=== PATIENT | female | born 1965 | race Asian ===

== ENCOUNTER 2016-09-22 15:26 | Inpatient (IN) | payer SELFPAY ==
[~2016-09-22] VITALS: Ht 160 cm; Wt 60.8 kg
[2016-09-22 15:50] VITALS: BP 106/75
--- NOTE | 2016-09-22 15:54 | Emergency Room Report ---
History of Present Illness General Chief Complaint: Seizure Source: Patient, Family Member, EMS Present Illness HPI Patient is a 51-year-old female presenting with an episode while walking today. Her daughter states that the patient collapsed to the ground and began convulsing. This lasted approximately 30 seconds and was followed by the patient taking a deep breath and then waking up but being confused. She is still somewhat confused but is continuing to improve. Upon arrival the patient is oriented x3. Patient does not have a history of any similar episodes in the past. She is currently taking spironolactone for "hair loss "as prescribed by her primary physician Allergies: Coded Allergies: PENICILLINS (Verified Allergy, Unknown, 09/22/16) Patient History Past Medical History: other - anemia Past Surgical History: none Pertinent Family History: none Social History: Denies: alcohol use, drug use, smoking Now: No Nursing Documentation-[facility] Past Medical History: No History, Except For Hx Hypertension: Yes Review of Systems All Other Systems: limited Physical Exam Vital Signs Date Time Temp Pulse Resp B/P Pulse Ox O2 Delivery O2 Flow Rate FiO2 09/22/16 15:21 98.2 105 16 104/70 100 Room Air Sp02 EP Interpretation: reviewed, normal General Appearance: no apparent distress, alert, GCS 15, non-toxic Head: normocephalic, atraumatic Eyes: bilateral eye PERRL, bilateral eye normal inspection ENT: hearing grossly normal, normal pharynx, no angioedema, normal voice Neck: full range of motion, supple/symm/no masses Respiratory: chest non-tender, lungs clear, normal breath sounds, speaking full sentences Cardiovascular #1: regular rate, rhythm, no edema Gastrointestinal: normal bowel sounds, non tender, soft, non-distended, no guarding, no rebound Musculoskeletal: back normal, gait/station normal, normal range of motion, non- tender, calf tenderness Neurologic: alert, oriented x3, responsive, motor strength/tone normal, sensory intact, speech normal Skin: normal color, no rash, warm/dry, well hydrated Medical Decision Making Diagnostic Impression: Primary Impression: Epileptic seizure, generalized ER Course patient was monitored in the emergency Department while laboratory studies returned. Patient's laboratory studies were unremarkable save for a potassium of 5.5. CT head was also unremarkable. Plan was to admit the patient to the hospital for syncope versus seizure given the fact the patient has no primary care physician in the [facility] and is here from out of town no way of followup. However, while waiting the patient suffered a tonic-clonic seizure lasting approximately 1-1/2 minutes. This was followed by a postictal period. The episode was witnessed by me. Plan will be the same given the patient's lack of followup. She was given 1000 mg IV Keppra and I'm waiting on the hospitalist for confirmation of the patient's admission Laboratory Tests Test 09/22/16 16:14 White Blood Count 9.4 K/UL (4.8-10.8) Red Blood Count 4.47 M/UL (4.20-5.40) Hemoglobin 14.4 G/DL (12.0-16.0) Hematocrit 42.0 % (37.0-47.0) Mean Corpuscular Volume 94 FL (80-99) Mean Corpuscular Hemoglobin 32.2 PG (27.0-31.0) H Mean Corpuscular Hemoglobin Concent 34.2 G/DL (32.0-36.0) Red Cell Distribution Width 12.5 % (11.6-14.8) Platelet Count 255 K/UL (150-450) Mean Platelet Volume 6.5 FL (6.5-10.1) Neutrophils (%) (Auto) 74.9 % (45.0-75.0) Lymphocytes (%) (Auto) 15.9 % (20.0-45.0) L Monocytes (%) (Auto) 6.9 % (1.0-10.0) Eosinophils (%) (Auto) 1.4 % (0.0-3.0) Basophils (%) (Auto) 0.9 % (0.0-2.0) Sodium Level 135 mEQ/L (135-145) Potassium Level 5.5 mEQ/L (3.4-4.9) H Chloride Level 97 mEQ/L (98-107) L Carbon Dioxide Level 25 mEQ/L (20-30) Anion Gap 13 (5-15) Blood Urea Nitrogen 14 mg/dL (7-23) Creatinine 0.8 mg/dL (0.5-0.9) Estimate Glomerular Filtration Rate > 60 mL/min (>60) Glucose Level 126 mg/dL (74-106) H Calcium Level 10.1 mg/dL (8.6-10.2) Total Bilirubin 0.4 mg/dL (0.0-1.2) Aspartate Amino Transferase (AST) 17 U/L (5-40) Alanine Aminotransferase (ALT) 12 U/L (3-33) Alkaline Phosphatase 50 U/L (35-104) Total Creatine Kinase 54 U/L (26-140) Troponin I < 0.30 ng/mL (<=0.30) Total Protein 6.9 g/dL (6.6-8.7) Albumin 4.3 g/dL (3.5-5.2) Globulin 2.6 g/dL Albumin/Globulin Ratio 1.6 (1.0-2.7) EKG Diagnostic Results Rate: normal Rhythm: NSR ST Segments: no acute changes Other Impression sinus rhythm, rate 86, normal axis, no acute ST or T-wave abnormalities Rhythm Strip Diag. Results Rhythm Strip Time: 15:55 EP Interpretation: yes Rhythm: NSR Other Impression rate 86, normal axis, no acute ST or T-wave abnormalities CT/MRI/US Diagnostic Results CT/MRI/US Diagnostic Results : Impression per radiologist-no hemorrhage or cortical edema. MRI more sensitive. Deformities of the bilateral zygomatic arches chronic? Last Vital Signs Date Time Temp Pulse Resp B/P Pulse Ox O2 Delivery O2 Flow Rate FiO2 09/22/16 15:21 98.2 105 16 104/70 100 Room Air Disposition: ADMITTED INPATIENT NOLVIA MURILLO Sep 22, 2016 15:54
[2016-09-22 16:31] LABS: BASOPHILS % (AUTO) 0.9 % (0.0-2.0); EOSINOPHILS % (AUTO) 1.4 % (0.0-3.0); LYMPHOCYTES % (AUTO) 15.9 % (20.0-45.0); MEAN CORPUSCULAR HEMOGLOBIN 32.2 PG (27.0-31.0); MEAN CORPUSCULAR HGB CONC 34.2 G/DL (32.0-36.0); MEAN CORPUSCULAR VOLUME 94 FL (80-99); MEAN PLATELET VOLUME 6.5 FL (6.5-10.1); MONOCYTES % (AUTO) 6.9 % (1.0-10.0); NEUTROPHILS % (AUTO) 74.9 % (45.0-75.0); PLATELET COUNT 255 K/UL (150-450); RED BLOOD COUNT 4.47 M/UL (4.20-5.40); RED CELL DISTRIBUTION WIDTH 12.5 % (11.6-14.8); WHITE BLOOD COUNT 9.4 K/UL (4.8-10.8)
[2016-09-22 16:54] LABS: TROPONIN I < 0.30 ng/mL (<=0.30)
[2016-09-22 16:57] LABS: ALANINE AMINOTRANSFERASE 12 U/L (3-33); ALBUMIN/GLOBULIN RATIO 1.6 (1.0-2.7); ANION GAP 13 (5-15); ASPARTATE AMINO TRANSFERASE 17 U/L (5-40); CALCIUM 10.1 mg/dL (8.6-10.2); CARBON DIOXIDE 25 mEQ/L (20-30); CHLORIDE 97 mEQ/L (98-107); CREATININE 0.8 mg/dL (0.5-0.9); GLOMERULAR FILTRATION RATE > 60 mL/min (>60); HEMOLYSIS 4; POTASSIUM 5.5 mEQ/L (3.4-4.9); SODIUM 135 mEQ/L (135-145); TOTAL PROTEIN 6.9 g/dL (6.6-8.7)
[2016-09-22 17:00] VITALS: BP 105/71
[2016-09-22] MEDS ORDERED: APLENZIN174 MG PO (18:23)
[2016-09-22] MEDS ORDERED: LYRICA75 M1 ORAL ×2 (18:23→22:44)
[2016-09-22] MEDS ORDERED: ALDACTONE25 MG ORAL (18:24)
[2016-09-22] MEDS ORDERED: LORazepam Inj 2mg/ml 1ml ONE (18:28)
[2016-09-22] MEDS ORDERED: levETIRAcetam 500mg vial IV ONE (18:29)
[2016-09-22 18:40] VITALS: BP 139/86
[2016-09-22] MEDS ORDERED: levETIRAcetam 1,000mg/NS100ml 100 ML IVPB ONE (18:45)
[2016-09-22 19:28] VITALS: BP 111/69
[2016-09-22 20:38] VITALS: BP 109/71
--- NOTE | 2016-09-22 20:40 | History & Physical ---
History and Physical History & Physicial d/c summary dictated [id number] GERSON HUTTON M.D. Sep 22, 2016 20:40
[2016-09-22] MEDS ORDERED: LORazepam Inj 2mg/ml 1ml IV PRN (21:00)
[2016-09-22 21:10] VITALS: BP 117/64
[2016-09-22] MEDS ORDERED: SPIRONOLACTONE100 MG ORAL (22:44)
[2016-09-22] MEDS ORDERED: WELLBUTRIN XL150 M3 ORAL (22:44)
[2016-09-22] MEDS ORDERED: [UNRECOGNIZED DRUG - OTHER] PO (22:44)
[2016-09-22] MEDS ORDERED: LYRICA150 MG ORAL (22:44)
[2016-09-23] VITALS (7 sets, daily range): BP systolic 87–96; BP diastolic 54–61
[2016-09-23] MEDS: Lyrica 75mg cap ORAL SCH (08:24)
[2016-09-23 08:56] LABS: BASOPHILS % (AUTO) 1.3 % (0.0-2.0); EOSINOPHILS % (AUTO) 1.6 % (0.0-3.0); MEAN CORPUSCULAR HEMOGLOBIN 31.5 PG (27.0-31.0); MEAN CORPUSCULAR HGB CONC 32.5 G/DL (32.0-36.0); MEAN CORPUSCULAR VOLUME 97 FL (80-99); MEAN PLATELET VOLUME 6.5 FL (6.5-10.1); MONOCYTES % (AUTO) 6.1 % (1.0-10.0); PLATELET COUNT 234 K/UL (150-450); RED BLOOD COUNT 4.07 M/UL (4.20-5.40); WHITE BLOOD COUNT 10.8 K/UL (4.8-10.8)
--- NOTE | 2016-09-23 09:12 | Diagnostic Imaging Report ---
Indication: Seizure Technique: Continuous helical CT scanning of the head was performed without intravenous contrast material. Axial and coronal 5 mm sections were generated. Radiation dose was minimized using automated exposure control Dose: Total Dose Length Product - DLP [address] Dose Index - CTDIvol(s) 70.38 mGy. Comparison: None Findings: The ventricular system is normal in size and configuration. There is no shift of midline structures. No abnormal extra-axial fluid collections are noted. There is no evidence of intracerebral bleeding. No other abnormal high or low density areas are noted within the brain. Visualized orbits and sinuses are unremarkable. The calvarium is intact. The mastoids are clear. Impression: Normal CT scan of the head without contrast material. Consider MRI with contrast for more sensitive evaluation of history seizure disorder This agrees with the preliminary interpretation provided overnight by Dr. Rivera The CT scanner at [facility] is accredited by the [employer] and the scans are performed using protocols designed to limit radiation exposure to as low as reasonably achievable to attain images of sufficient resolution adequate for diagnostic evaluation.
[2016-09-23 09:19] LABS: ANION GAP 11 (5-15); CALCIUM 8.8 mg/dL (8.6-10.2); CARBON DIOXIDE 24 mEQ/L (20-30); CHLORIDE 106 mEQ/L (98-107); CREATININE 0.7 mg/dL (0.5-0.9); GLOMERULAR FILTRATION RATE > 60 mL/min (>60); HEMOLYSIS 9; SODIUM 141 mEQ/L (135-145)
--- NOTE | 2016-09-23 11:46 | Internal Med Progress Note ---
Subjective Physician Name Hayden Hutton Attending Physician Hayden Hutton M.D. Current Medications Medications (Trade) Dose Ordered Sig/Orlin Route PRN Reason Start Time Stop Time Status Last Admin Dose Admin Acetaminophen (Tylenol) 650 mg Q4H PRN ORAL Mild Pain (Pain Scale 1-3) 09/22/16 21:00 10/22/16 20:59 Dextrose (Dextrose 50%) STAT PRN IV Hypoglycemia 09/22/16 21:00 10/22/16 20:59 Levetiracetam (Keppra) 250 mg Q12HR ORAL 09/23/16 12:00 10/23/16 11:59 Lorazepam (Ativan 2mg/ml 1ml) 0.5 mg Q4H PRN IV seizure 09/22/16 21:00 09/29/16 20:59 Ondansetron HCl (Zofran) 4 mg Q6H PRN IVP Nausea & Vomiting 09/22/16 21:00 10/22/16 20:59 Pregabalin (Lyrica) 75 mg DAILY ORAL 09/23/16 09:00 10/23/16 08:59 09/23/16 08:24 Pregabalin (Lyrica) 150 mg BEDTIME ORAL 09/23/16 21:00 10/23/16 20:59 Sodium Chloride (Sodium Chloride 1000ml bag) 1,000 ml @ 75 mls/hr [id number] IVLG 09/22/16 21:00 10/22/16 20:59 09/23/16 11:31 Allergies: Coded Allergies: PENICILLINS (Verified Allergy, Unknown, 09/22/16) All Systems: reviewed and negative except above - tired Objective Last Vital Signs Date Time Temp Pulse Resp B/P Pulse Ox O2 Delivery O2 Flow Rate FiO2 09/23/16 11:26 97.2 89 18 88/54 98 Room Air 09/22/16 20:55 2.0 General Appearance: no apparent distress, alert EENT: PERRL/EOMI, normal ENT inspection Neck: normal alignment, supple Cardiovascular: normal rate, regular rhythm Respiratory/Chest: chest wall non-tender, lungs clear Abdomen: soft, no organomegaly Extremities: normal range of motion, non-tender Neurologic: [employer] consultant II-XII grossly normal, alert, oriented x 3, responsive Laboratory Tests Test 09/22/16 16:14 09/23/16 08:30 White Blood Count 9.4 K/UL (4.8-10.8) 10.8 K/UL (4.8-10.8) Red Blood Count 4.47 M/UL (4.20-5.40) 4.07 M/UL (4.20-5.40) L Hemoglobin 14.4 G/DL (12.0-16.0) 12.8 G/DL (12.0-16.0) Hematocrit 42.0 % (37.0-47.0) 39.5 % (37.0-47.0) Mean Corpuscular Volume 94 FL (80-99) 97 FL (80-99) Mean Corpuscular Hemoglobin 32.2 PG (27.0-31.0) H 31.5 PG (27.0-31.0) H Mean Corpuscular Hemoglobin Concent 34.2 G/DL (32.0-36.0) 32.5 G/DL (32.0-36.0) Red Cell Distribution Width 12.5 % (11.6-14.8) 13.0 % (11.6-14.8) Platelet Count 255 K/UL (150-450) 234 K/UL (150-450) Mean Platelet Volume 6.5 FL (6.5-10.1) 6.5 FL (6.5-10.1) Neutrophils (%) (Auto) 74.9 % (45.0-75.0) 75.0 % (45.0-75.0) Lymphocytes (%) (Auto) 15.9 % (20.0-45.0) L 16.0 % (20.0-45.0) L Monocytes (%) (Auto) 6.9 % (1.0-10.0) 6.1 % (1.0-10.0) Eosinophils (%) (Auto) 1.4 % (0.0-3.0) 1.6 % (0.0-3.0) Basophils (%) (Auto) 0.9 % (0.0-2.0) 1.3 % (0.0-2.0) Sodium Level 135 mEQ/L (135-145) 141 mEQ/L (135-145) Potassium Level 5.5 mEQ/L (3.4-4.9) H 4.0 mEQ/L (3.4-4.9) Chloride Level 97 mEQ/L (98-107) L 106 mEQ/L (98-107) Carbon Dioxide Level 25 mEQ/L (20-30) 24 mEQ/L (20-30) Anion Gap 13 (5-15) 11 (5-15) Blood Urea Nitrogen 14 mg/dL (7-23) 10 mg/dL (7-23) Creatinine 0.8 mg/dL (0.5-0.9) 0.7 mg/dL (0.5-0.9) Estimat Glomerular Filtration Rate > 60 mL/min (>60) > 60 mL/min (>60) Glucose Level 126 mg/dL (74-106) H 80 mg/dL (74-106) Calcium Level 10.1 mg/dL (8.6-10.2) 8.8 mg/dL (8.6-10.2) Total Bilirubin 0.4 mg/dL (0.0-1.2) Aspartate Amino Transf (AST/SGOT) 17 U/L (5-40) Alanine Aminotransferase (ALT/SGPT) 12 U/L (3-33) Alkaline Phosphatase 50 U/L (35-104) Total Creatine Kinase 54 U/L (26-140) Troponin I < 0.30 ng/mL (<=0.30) Total Protein 6.9 g/dL (6.6-8.7) Albumin 4.3 g/dL (3.5-5.2) Globulin 2.6 g/dL Albumin/Globulin Ratio 1.6 (1.0-2.7) Magnesium Level 2.2 mg/dL (1.7-2.5) Intake and Output 09/22/16 09/23/16 19:00 07:00 Intake Total 0 ml 1700 ml Balance 0 ml 1700 ml Intake Oral 0 ml IV Total 1700 ml # Voids 1 Assessment/Plan Assessment/Plan Seizure x 2 - likely secondary wellbutrin anxeity d/o Lower back pain plan tele stop wellbutrin neuro consulted CT brain - no acute process EEG - pending monitor HAYDEN HUTTON M.D. Sep 23, 2016 11:46
[2016-09-23] MEDS ORDERED: celeBREX 100mg Cap **SURGERY PATIENTS ONLY ORAL PRN (12:00)
--- NOTE | 2016-09-23 13:30 | Cardiology Report ---
APPROVED REPORT EKG Measurement Heart [id number] Normal sinus rhythm Normal ECG
--- NOTE | 2016-09-23 18:15 | Consultation ---
DATE OF CONSULTATION: 09/23/2016 NEUROLOGICAL CONSULTATION REQUESTING PHYSICIAN: Hayden Logan M.D. HISTORY OF PRESENT ILLNESS: This is a 51-year-old female, seen in neurological consultation to evaluate episode of seizure activity. According to the patient and her family, who was present during this examination now and yesterday, she went with her family to do some shopping, she had a couple water and couple cups of juice in the morning, that day was very hot, she felt somewhat dehydrated, then they were walking towards the shopping center, inside of shopping center was quite crowded with still quite hot. At one point, she lost consciousness, described to have generalized clonic-tonic movement, she collapsed to the ground and one minute later, she started to wake up, but was very confused. She was brought to emergency room. On admission being fully awake and oriented. Her vital signs on admission included blood pressure 104/70, heart rate of 105, and temperature 98.[address] of the brain was obtained, this was normal study. While under observation in the emergency room, the patient had another witnessed clonic-tonic seizure episode lasting one and half minute following which she was postictal, the patient was given 1000 mg IV Keppra and was hospitalized. EKG showed normal normal sinus rhythm. Laboratory work included CBC study is within normal limits. Chemistry panel, potassium 5.5, chloride 97, and blood sugar 126 with normal troponin. Following admission to present, there was no further paroxysmal events. The patient continued to have dizziness and weakness. PAST MEDICAL HISTORY: The patient has history of cervical lumbar spondylosis with radiculopathy. She is maintained on Lyrica for pain management 75 mg IM, 150 mg at bedtime the last one month, although felt no much improvement. She is on Aldactone for hair loss. The patient has history of depression and anxiety. The, the last couple of years, she was on and off on Xanax. Few days ago, she has been seen by a fraternity adviser, who offered her to start on antidepressant, Wellbutrin 150 mg daily. She is on Arcoxia gregory-2 inhibitor from [place] . ALLERGIES: Penicillin. FAMILY HISTORY: Noncontributory. No family members with seizure disorder. REVIEW OF SYMPTOMS: The patient at this time feel sleepy and dizzy. Some slight nausea. Denies tongue biting. Denies urine or bowel incontinence. No chest pain. No palpitations. No respiratory problems. No abdominal pain discomfort. No urine or bowel incontinence. The patient has evidence of depression and anxiety. PHYSICAL EXAMINATION: GENERAL: A well-developed, well-nourished, pleasant lady, not in acute distress, lying comfortably in bed. Her family at bedside. VITAL SIGNS: Her vital signs now are stable. Blood pressure of 88/54. HEENT: Head, normocephalic. No evidence of trauma. Eyes, ears, and throat are clear. NECK: Supple. No meningeal signs. MUSCULOSKELETAL: Unremarkable. There is no deformities. Peripheral pulses 1+ and symmetric. Straight leg raising test is negative, although felt discomfort with the right leg elevation. MENTAL STATUS: She is full alert and orient x3, fluent. No evidence of aphasia or apraxia. Although, she spoke in her [place] language and family was translating. CRANIAL NERVE II: Pupils both responding to light and accommodation. Extraocular movement intact. No nystagmus. CRANIAL NERVE V: Normal corneal responses. CRANIAL NERVE VII: No facial asymmetry. CRANIAL NERVE VIII: Normal hearing. CRANIAL NERVES IX THROUGH XII: Tongue is in midline. Symmetric palate elevation. MOTOR EXAMINATION: Normal muscle tone and strength, 5/5 in all extremities. No involuntary movement. Deep tendon reflexes are 1+ and symmetric with downgoing toes on both sides. Sensory exam normal to pinprick and light touch. Gait is stable, slow. IMPRESSION: 1. History of symptomatic generalized clonic-tonic seizure x2. 2. Anxiety and depression. 3. Cervical lumbar radiculopathy. 4. Hypertension. DISCUSSION: The patient has no evidence of focal lateralizing neurological deficit. Description of events followed by generalized seizure disorder. The seizure activity observed. Initially, she had a transient brief verbal unresponsiveness followed later with two witnessed generalized seizures. There is no evidence of focal onset. CAT scan is negative. We will obtain electroencephalogram and if no lateralizing abnormalities noted, I will recommend the patient to stop on Wellbutrin, which can lower seizure threshold. Maintain proper hydration. The patient overall does not require anticonvulsants, but given following couple weeks, she will be traveling back to [place], we will offer her a small dose of Keppra 250 mg b.i.d. for seizure prevention. The patient will sent in to her neurologist upon arrival to [place] country. Thank you for allowing me to see this interesting patient in neurological consultation. Scar Stephens M.D. DR: SHAWANDA JOB#: [id number] CC:
--- NOTE | 2016-09-23 18:30 | History and Physical Report ---
DATE OF ADMISSION: 09/22/2016 HISTORY OF PRESENT ILLNESS: This is a 51-year-old female from [place], who was visiting the [place] with history anxiety as well as neuropathic lower back pain, who presents to the emergency room because of a seizure that was witnessed by daughter. The patient had a blank episode with stare in the car earlier in the day. She did not point it to someone and suddenly fell to the floor and begun convulsing with tonic colonic appearing seizure, stiffness in the arms and flexion in both arms, grinding teeth, eyes rolling back, lasting approximately 30 seconds. The patient was confused after. Upon arrival to the emergency room, she is awake, alert, and oriented x3. She was recently started on bupropion for anxiety and stopped Xanax by outside physician approximately three days ago. She was also started on Aldactone for hair loss three days ago. She takes Lyrica for neuropathic back pain. The patient had another seizure episode while in the emergency room that was witnessed by the physicians. PAST MEDICAL HISTORY: Anxiety and neuropathic pain. PAST SURGICAL HISTORY: C section. ALLERGIES: The patient has allergy to penicillin, which causes a rash. PSYCHOSOCIAL HISTORY: The patient does not drink, smoke, or use any drugs. FAMILY HISTORY: Noncontributory. REVIEW OF SYSTEMS: A 12-point review of systems is negative except for pertinent positives as mentioned above. PHYSICAL EXAMINATION: VITAL SIGNS: Temperature is 98.2, pulse is 92, respiratory rate 19, blood pressure 105/71, and O2 saturation is 96% on room air. GENERAL: No acute distress. The patient is alert, awake, and oriented x3. HEENT: Normocephalic/atraumatic. NECK: Supple. No JVD. LUNGS: Clear to auscultation bilaterally. No crackles, rhonchi, or rales. CARDIOVASCULAR: Regular rate and rhythm. Normal S1 and S2. ABDOMEN: Soft, nontender, and nondistended. EXTREMITIES: No clubbing, cyanosis, or edema. LABORATORY AND DIAGNOSTIC DATA: CBC, white count of 9.4, hemoglobin of 14.4, and platelet count of 255,000. Sodium 135, potassium 5.5, chloride is 97, CO2 is 25, BUN 14, creatinine 0.8, and glucose is 126. LFTs are within normal limits. EKG shows normal sinus rhythm. No ST changes. CT brain is normal. ASSESSMENT: 1. The patient has had two witnessed seizures yesterday, which may be precipitated by bupropion, which was started three days prior. 2. Hyperkalemia, secondary to Aldactone. 3. Neuropathic lower back pain. PLAN: 1. On telemetry. 2. Neurologic consult. 3. CT brain shows no acute findings. 4. EEG ordered. 5. We will hold bupropion as well as Aldactone. 6. We will discuss with Neurology, the patient surely needs an anti-epileptic given there is a clear cause for her seizure disorder. 7. We will also discuss the MRI of brain if necessary. Time spent on dictation is greater than 35 minutes. Hayden Logan MD DR: PITO JOB#: [id number] CC:
[2016-09-23] MEDS ORDERED: Lyrica 75mg cap ORAL SCH (21:00)
[2016-09-24] VITALS: BP 92/64
[2016-09-24 04:00] VITALS: BP 89/65
[2016-09-24 08:00] VITALS: BP 98/65
[2016-09-24] MEDS: Lyrica 75mg cap ORAL SCH (08:24)
--- NOTE | 2016-09-24 10:09 | Discharge Instructions ---
Discharge Instructions Discharge Instructions Call MD/Return to Hospital if: recurrent seizures Diet: regular Activity: resume normal activities For Congestive Heart Failure Reminder Report to your physician any weight gain of 5 pounds or more in one week. GERSON HUTTON M.D. Sep 24, 2016 10:09
[2016-09-24 12:00] VITALS: BP 99/64
--- NOTE | 2016-09-24 12:53 | Neurology Progress Note ---
Interim History Interim History ROS Limited/Unobtainable: No Complaints: memory loss, R leg pain Objective Physical Exam Last Vital Signs Date Time Temp Pulse Resp B/P Pulse Ox O2 Delivery O2 Flow Rate FiO2 09/24/16 08:00 73 09/24/16 08:00 97.7 17 98/65 97 Room Air 09/22/16 20:55 2.0 General: well developed, well nourished, no acute distress Head: normocophalic, atraumatic Neck: no rigidity Neurologic Exam Mental Status: awake, alert, oriented x4, normal cognition, normal remote memory Speech: normal speech, no dysarthia Language: normal language, no aphasia Cranial Nerve II: fundus normal, visual willoughby, no papilledema Cranial Nerves III, IV, : PERRLA, EOMI, pupils Cranial Nerve V: normal facial sensations, temporales function normal, masseters function normal, pterygoids function normal Cranial Nerve VII: no facial asymmetry, normal facial expressions Cranial Nerve VIII: normal hearing, no nystagmus Cranial Nerve IX: normal palate elevation, gag response Cranial Nerve X: no voice hoarseness Cranial Nerve XI: SCM symmetric, trapezii function normal Cranial Nerve XII: tongue midline, no tongue atrophy/fasciculations Motor System: normal muscle tone, strength 5/5, no involuntary movement, no muscle wasting Sensory: normal pinprick, normal light touch, normal position sense, normal graphesthesia Coordination: normal finger to nose bilaterally, normal heel to [place] bilaterally, negative Romberg test Deep Tendon Reflexes: 2+ ankle (L), 2+ ankle (R), 2+ bicep (L), 2+ bicep (R), 2 + brachioradialis (L), 2+ brachioradialis (R), 2+ knee (L), 2+ knee (R), 2+ tricep (L), 2+ tricep (R) Stance: normal Gait: stable, normal regular, heel + toe gait Impression/Recommendations Problems: (1) Epileptic seizure, generalized Status: stable Recommendations keppra 250mg bid EEG nl ok d/c home ALIDA NÚÑEZ Sep 24, 2016 12:53
--- NOTE | 2016-09-24 13:22 | Discharge Summary ---
Discharge Summary Hospital Course Date of Admission Sep 22, 2016 at 18:06 Date of Discharge September Admitting Diagnosis seizure HPI Julio Cesar Nielsen is a 51 year old female who was admitted on Sep 22, 2016 at 18: 06 for seizure She had recently started buproprion 3 days prior which likely precipitated her Seizure. this medication was discontinued and she was started on keppra 250mg PO BID because of recurrent seizure in ER. She had a CT brain that showed no acute process. She was seen by Neurology Dr. Jama and had a normal EEG. She was instructed to stop BUPROPRION and continue KEPPRA for 4 weeks. Hospital Course She had recently started buproprion 3 days prior which likely precipitated her Seizure. this medication was discontinued and she was started on keppra 250mg PO BID because of recurrent seizure in ER. She had a CT brain that showed no acute process. She was seen by Neurology Dr. Jama and had a normal EEG. She was instructed to stop BUPROPRION and continue KEPPRA for 4 weeks. Discharge Condition Upon Discharge: stable Discharge Disposition Patient was discharged to HOME Discharge Diagnoses: Discharge Instructions Discharge Instructions Call MD/Return to Hospital if: recurrent seizures Activity: resume normal activities GERSON HUTTON M.D. Sep 24, 2016 13:22
--- NOTE | 2016-09-24 14:16 | Electroencephalogram ---
DATE OF PROCEDURE: 09/23/2016 ELECTROENCEPHALOGRAPHY REPORT HISTORY: This is a 51-year-old female with a history of generalized seizure episode. EEG was requested to rule out any ongoing seizure activities or identifies epileptogenic focus. EEG was done using 18 electrodes placed on scalp to scalp, scalp to ear montages according to 10/20 International System. Apparently, the patient is maintained on Keppra. Most wakeful portions of recording, background consists of low voltage, alpha activities 8 hertz bilaterally with intermittently with medium voltage alpha activities bilaterally, intermittently appearing drowsy with appearance of bifrontal delta slowing, generalized 6 to 8 hertz theta slowing. There was no photic stimulation from 3 to 32 hertz with no significant changes. There was normal photic drive. No asymmetry from side to side. No spike or wave activities noted. IMPRESSION: Normal awake stage 1 sleep EEG with photic stimulation. COMMENT: Absence of paroxysmal event on a single recording does not rule out seizure disorder. Scar Stephens M.D. DR: SHAWANDA JOB#: [id number] CC:
== END 2016-09-24 15:30 | disposition home or self-care (01) | DRG 101 ==
LOC: EDBD 15:26 → EMR 15:40 → 2E 18:06 → EDBD 18:06 → EDBEDREQ 20:26
DX: G40.509 Epileptic seizures related to external causes, not intractable, without status epilepticus (principal); E87.5 Hyperkalemia; T43.295A Adverse effect of other antidepressants, initial encounter; T50.0X5A Adverse effect of mineralocorticoids and their antagonists, initial encounter; Y92.89 Other specified places as the place of occurrence of the external cause; F41.8 Other specified anxiety disorders; M47.26 Other spondylosis with radiculopathy, lumbar region
CPT/HCPCS: 36415; 70450; 80048; 80053; 80299; 82550; 82962; 83735; 84484; 85025; 93005; 95819

== ENCOUNTER 2016-10-07 16:40 | Emergency (ER) | payer SELFPAY ==
[~2016-10-07] VITALS: Ht 157.5 cm; Wt 54.4 kg
[~2016-10-07 16:40] MED LIST: ALDACTONE25 MG ORAL; APLENZIN174 MG PO; LYRICA150 MG ORAL; LYRICA75 M1 ORAL; SPIRONOLACTONE100 MG ORAL; WELLBUTRIN XL150 M3 ORAL; [UNRECOGNIZED DRUG - OTHER] PO
[2016-10-07 18:20] LABS: BASOPHILS % (AUTO) 1.1 % (0.0-2.0); EOSINOPHILS % (AUTO) 1.4 % (0.0-3.0); LYMPHOCYTES % (AUTO) 14.3 % (20.0-45.0); MEAN CORPUSCULAR HEMOGLOBIN 32.5 PG (27.0-31.0); MEAN CORPUSCULAR VOLUME 96 FL (80-99); MEAN PLATELET VOLUME 6.5 FL (6.5-10.1); MONOCYTES % (AUTO) 6.7 % (1.0-10.0); NEUTROPHILS % (AUTO) 76.6 % (45.0-75.0); PLATELET COUNT 244 K/UL (150-450); RED BLOOD COUNT 4.19 M/UL (4.20-5.40); RED CELL DISTRIBUTION WIDTH 13.1 % (11.6-14.8); WHITE BLOOD COUNT 9.6 K/UL (4.8-10.8)
[2016-10-07 18:25] LABS: TROPONIN I < 0.30 ng/mL (<=0.30)
[2016-10-07 18:39] LABS: ALANINE AMINOTRANSFERASE 9 U/L (3-33); ALBUMIN/GLOBULIN RATIO 1.7 (1.0-2.7); ANION GAP 10 (5-15); ASPARTATE AMINO TRANSFERASE 17 U/L (5-40); CARBON DIOXIDE 29 mEQ/L (20-30); CHLORIDE 102 mEQ/L (98-107); CREATININE 0.7 mg/dL (0.5-0.9); GLOMERULAR FILTRATION RATE > 60 mL/min (>60); HEMOLYSIS 18; POTASSIUM 4.2 mEQ/L (3.4-4.9); SODIUM 141 mEQ/L (135-145); TOTAL PROTEIN 6.4 g/dL (6.6-8.7)
[2016-10-07 18:48] LABS: CKMB < 1.5 ng/mL (< 3.8)
[2016-10-07 18:58] LABS: CALCIUM 9.9 mg/dL (8.6-10.2)
--- NOTE | 2016-10-07 19:06 | Emergency Room Report ---
History of Present Illness General Chief Complaint: Chest Pain Source: Patient Present Illness HPI 51-year-old female presents to the emergency department complaining of chest pain 8/10 in severity x3 days with radiation to the back. Patient also reports pain is worse at night. She denies nausea, vomiting, fevers, chills. Patient denies cardiac history. Denies drug or alcohol use. Patient has a history of seizures. Denies recent illness or cough. reports pain in the epigastric area that radiates up, burning and sharp sensation. Denies Palpitations, LOC, AMS, dizziness, Changes in Vision, Sensation, paresthesias, or a sudden severe headache. Allergies: Coded Allergies: PENICILLINS (Verified Allergy, Unknown, 09/22/16) Patient History Past Medical History: see triage record Past Surgical History: none Pertinent Family History: none Reviewed Nursing Documentation: PMH: Agreed, PSxH: Agreed Nursing Documentation-PMH Past Medical History: No History, Except For Hx Seizures: Yes Review of Systems All Other Systems: negative except mentioned in HPI Physical Exam Vital Signs Date Time Temp Pulse Resp B/P Pulse Ox O2 Delivery O2 Flow Rate FiO2 10/07/16 16:44 97.9 82 20 103/70 100 Room Air Sp02 EP Interpretation: reviewed, normal General Appearance: normal inspection, well appearing, no apparent distress, alert, GCS 15, non-toxic, thin Head: normocephalic, atraumatic Eyes: bilateral eye PERRL, bilateral eye normal inspection ENT: hearing grossly normal, normal pharynx, no angioedema, normal voice Neck: full range of motion, supple/symm/no masses Respiratory: chest non-tender, lungs clear, normal breath sounds, speaking full sentences Cardiovascular #1: regular rate, rhythm, no edema Gastrointestinal: normal bowel sounds, non tender, soft, no guarding, no rebound Rectal: deferred Genitourinary: normal inspection, no CVA tenderness Musculoskeletal: back normal, gait/station normal, normal range of motion, non- tender Neurologic: alert, oriented x3, responsive, motor strength/tone normal, sensory intact, speech normal Psychiatric: judgement/insight normal, memory normal, mood/affect normal Skin: normal color, no rash, warm/dry, well hydrated Medical Decision Making PA Attestation Dr. Leslie is my supervising Physician whom patient management has been discussed with. Diagnostic Impression: Primary Impression: Nonspecific chest pain Additional Impression: Gastritis Qualified Codes: K29.70 - Gastritis, unspecified, without bleeding ER Course 51-year-old female presents to the emergency department complaining of chest pain 8/10 in severity x3 days with radiation to the back. Patient also reports pain is worse at night. She denies nausea, vomiting, fevers, chills. Patient denies cardiac history. Denies drug or alcohol use. Patient has a history of seizures. Denies recent illness or cough. reports pain in the epigastric area that radiates up, burning and sharp sensation. Denies Palpitations, LOC, AMS, dizziness, Changes in Vision, Sensation, paresthesias, or a sudden severe headache. Ddx considered but are not limited to [place], pneumonia, contusion, costochondritis , PE, ACS, Shoulder strain, Chest wall contusion. aortic dissection. Vital signs: are WNL, pt. is afebrile, non-tachycardic, non-tachypneic H&PE are most consistent with non-specific CP, will r/o cardiac cause. ORDERS: - EK BPM NSR, no acute ST elevation , pt. not given ASA - interpreted in ED by Dr. Leslie, and her interpretation is scribed by EDITH Longoria -CBC: WNL -CMP: unremarkable -CK-MB: WNL -Troponins: WNL CXR: No consolidation, effusion, pneumothorax or acute cardiopulmonary findings per soft read in ED by Dr. Leslie, her interpretation is scribed by EDITH Longoria ED INTERVENTIONS: - Zantac 150mg PO - Mylanta PO - Viscous Lidocaine PO -upon re-assessment pt. states her symptoms have improved. pt. states her PCP also visited her bedside and stated he believes she is fine and will see her this week. - I did not speak with PCP. -D/w pt. to return to ED promptly with worsening or new symptoms. DISCHARGE: At this time pt. is stable for d/c to home with close outpatient follow up. Will provide printed patient care instructions, and any necessary prescriptions. Care plan and follow up instructions have been discussed with the patient prior to discharge. Labs Test 10/07/16 17:30 White Blood Count 9.6 K/UL (4.8-10.8) Red Blood Count 4.19 M/UL (4.20-5.40) Hemoglobin 13.6 G/DL (12.0-16.0) Hematocrit 40.1 % (37.0-47.0) Mean Corpuscular Volume 96 FL (80-99) Mean Corpuscular Hemoglobin 32.5 PG (27.0-31.0) Mean Corpuscular Hemoglobin Concent 34.0 G/DL (32.0-36.0) Red Cell Distribution Width 13.1 % (11.6-14.8) Platelet Count 244 K/UL (150-450) Mean Platelet Volume 6.5 FL (6.5-10.1) Neutrophils (%) (Auto) 76.6 % (45.0-75.0) Lymphocytes (%) (Auto) 14.3 % (20.0-45.0) Monocytes (%) (Auto) 6.7 % (1.0-10.0) Eosinophils (%) (Auto) 1.4 % (0.0-3.0) Basophils (%) (Auto) 1.1 % (0.0-2.0) Sodium Level 141 mEQ/L (135-145) Potassium Level 4.2 mEQ/L (3.4-4.9) Chloride Level 102 mEQ/L (98-107) Carbon Dioxide Level 29 mEQ/L (20-30) Anion Gap 10 (5-15) Blood Urea Nitrogen 11 mg/dL (7-23) Creatinine 0.7 mg/dL (0.5-0.9) Estimat Glomerular Filtration Rate > 60 mL/min (>60) Glucose Level 88 mg/dL (74-106) Calcium Level 9.9 mg/dL (8.6-10.2) Total Bilirubin 0.2 mg/dL (0.0-1.2) Aspartate Amino Transf (AST/SGOT) 17 U/L (5-40) Alanine Aminotransferase (ALT/SGPT) 9 U/L (3-33) Alkaline Phosphatase 48 U/L (35-104) Total Creatine Kinase 42 U/L (26-140) Creatine Kinase MB < 1.5 ng/mL (< 3.8) Creatine Kinase MB Relative Index Troponin I < 0.30 ng/mL (<=0.30) Total Protein 6.4 g/dL (6.6-8.7) Albumin 4.1 g/dL (3.5-5.2) Globulin 2.3 g/dL Albumin/Globulin Ratio 1.7 (1.0-2.7) Lipase 27 U/L (< 60) Last Vital Signs Date Time Temp Pulse Resp B/P Pulse Ox O2 Delivery O2 Flow Rate FiO2 10/07/16 18:23 79 20 10/07/16 16:44 97.9 103/70 100 Room Air Disposition: HOME, SELF-CARE Condition: Stable Scripts Acetaminophen* (TYLENOL EXTRA STRENGTH*) 500 Mg Tablet 500 MG ORAL Q6H, #20 TAB 0 Refills Prov: Mare Longoria 10/07/16 Ranitidine Hcl* (ZANTAC*) 150 Mg Tablet 150 MG ORAL TWICE A DAY for 14 Days, #28 TAB Prov: Mare Longoria 10/07/16 Referrals: ALIDA NÚÑEZ (PCP) Patient Instructions: Nonspecific Chest Pain, Heartburn Additional Instructions: Take medications as directed. Follow up with a Primary Care Provider in 3-5 days, even if your symptoms have resolved. --Please review list of primary care clinics, if you do not already have a primary care provider Return sooner to ED if new symptoms occur, or current symptoms become worse. - Please note that this Emergency Department Report was dictated using [employer] assistant technology software, occasionally this can lead to erroneous entry secondary to interpretation by the dictation equipment. Mare Longoria Oct 07, 2016 19:06
[2016-10-07 19:20] VITALS: BP 130/70
[2016-10-07 19:28] LABS: LIPASE 27 U/L (< 60)
[2016-10-07] MEDS ORDERED: TYLENOL EXTRA500 MG ORAL (19:39)
[2016-10-07] MEDS ORDERED: ZANTAC150 MG ORAL (19:39)
[2016-10-07] MEDS ORDERED: Lidocaine 2% Visc 15ml soln ORAL ONE (19:45)
[2016-10-07 20:30] VITALS: BP 126/79
--- NOTE | 2016-10-08 10:11 | Diagnostic Imaging Report ---
Indication: Chest pain Technique: One view of the chest Comparison: none Findings: Lungs and pleural spaces are clear. Heart size is normal. Impression: No acute process
--- NOTE | 2016-10-08 18:14 | Cardiology Report ---
APPROVED REPORT EKG Measurement Heart [id number] Normal sinus rhythm Rightward axis Borderline ECG
== END 2016-10-07 20:30 | disposition home or self-care (01) ==
LOC: EDUNIT# 16:40 → EMR 17:00
DX: R07.89 Other chest pain (principal); K29.70 Gastritis, unspecified, without bleeding; Z88.0 Allergy status to penicillin
CPT/HCPCS: 36415; 71010; 80053; 82550; 82553; 83690; 84484; 85025; 93005; 99284

== ENCOUNTER 2020-03-06 15:43 | Emergency (ER) | payer OTHER ==
[~2020-03-06] VITALS: Ht 162.6 cm; Wt 63.5 kg
[~2020-03-06 15:43] MED LIST changes: +TYLENOL EXTRA500 MG ORAL; +ZANTAC150 MG ORAL
[2020-03-06 16:01] VITALS: BP 109/74
--- NOTE | 2020-03-06 16:01 | NUR ---
ED Nurse Note: Patient from home and walked in due to palpitation and fatigue x 2 days. Pt denies any presence of coughing or chills. No reports of dizziness. Patient is AAO x4, ambulatory with non labored breathing.
[2020-03-06] MEDS ORDERED: LORazepam Inj 2mg/ml 1ml IV ONE (16:15)
--- NOTE | 2020-03-06 16:20 | NUR ---
ED Nurse Note: Collected blood specimen then sent.
[2020-03-06 16:58] LABS: BASOPHILS % (AUTO) 1.6 % (0.0-2.0); EOSINOPHILS % (AUTO) 2.1 % (0.0-3.0); HEMATOCRIT 40.2 % (37.0-47.0); HEMOGLOBIN 13.6 G/DL (12.0-16.0); LYMPHOCYTES % (AUTO) 25.2 % (20.0-45.0); MEAN CORPUSCULAR VOLUME 92 FL (80-99); MONOCYTES % (AUTO) 7.1 % (1.0-10.0); PLATELET COUNT 257 K/UL (150-450); RED BLOOD COUNT 4.37 M/UL (4.20-5.40); RED CELL DISTRIBUTION WIDTH 13.3 % (11.6-14.8)
[2020-03-06 17:20] LABS: ANION GAP 8 mmol/L (5-15); BLOOD UREA NITROGEN 11 mg/dL (7-18); CALCIUM 8.6 MG/DL (8.5-10.1); CARBON DIOXIDE 27 MMOL/L (21-32); CHLORIDE 104 MMOL/L (98-107); CREATININE 0.6 MG/DL (0.55-1.30); POTASSIUM 3.9 MMOL/L (3.5-5.1); SODIUM 139 MMOL/L (136-145)
[2020-03-06 17:25] LABS: ALANINE AMINOTRANSFERASE 23 U/L (12-78); ALBUMIN 3.7 G/DL (3.4-5.0); ALBUMIN/GLOBULIN RATIO 1.1 (1.0-2.7); ALKALINE PHOSPHATASE 78 U/L (46-116); ASPARTATE AMINO TRANSFERASE 25 U/L (15-37); BILIRUBIN,TOTAL 0.4 MG/DL (0.2-1.0)
[2020-03-06] MEDS ORDERED: ATIVAN1 MG ORAL (17:39)
[2020-03-06] MEDS ORDERED: ZITHROMAX250 MG ORAL (17:39)
--- NOTE | 2020-03-06 17:40 | NUR ---
ED Nurse Note: Covid19 swab sent to lab.
[2020-03-06 17:54] VITALS: BP 108/72
--- NOTE | 2020-03-06 17:54 | NUR ---
ER DISCHARGE NOTE: Patient is cleared to be discharged per ERMD, pt is aox4, on room air, with stable vital signs. pt was given dc and prescription instructions, pt was able to verbalize understanding, pt id band and iv site removed without complications. pt is able to ambulate with steady gait. pt took all belongings.
--- NOTE | 2020-03-06 18:38 | Diagnostic Imaging Report ---
Indication: Chest pain Technique: One view of the chest Comparison: none Findings: Opacity in the right perihilar region probably just represents prominent bronchovascular markings, but some perihilar infiltrate is also possible. The pleural spaces and left lung are clear. The heart size is normal Impression: Possible right perihilar infiltrate. Correlate with clinical findings
--- NOTE | 2020-03-06 19:31 | Emergency Room Report ---
History of Present Illness General Chief Complaint: Palpitations Source: Patient Present Illness HPI 55-year-old female presents for palpitations. Stated her heart was racing today. Feels better now. Denies chest pain or shortness of breath. Denies cough. Denies fevers or chills. States that she does have history of anxiety and takes Cymbalta. No other aggravating relieving factors. 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 COVID-19 Screening: Negative COVID-19 COVID-19 Testing Source: 02/03 Patient History Past Surgical History: none Pertinent Family History: none Social History: Denies: smoking, alcohol use, drug use Now: No Immunizations: UTD Reviewed Nursing Documentation: PMH: Agreed; PSxH: Agreed Nursing Documentation-PMH Past Medical History: No History, Except For Hx Hypertension: Yes Hx Cancer: No Hx Gastrointestinal Problems: No Hx Neurological Problems: Yes - Neuropathic pain (feet/legs) Hx Seizures: Yes Review of Systems All Other Systems: negative except mentioned in HPI Physical Exam Vital Signs Date Time Temp Pulse Resp B/P (MAP) Pulse Ox O2 Delivery O2 Flow Rate FiO2 03/06/20 15:51 98.1 90 16 102/68 (79) 96 Room Air Sp02 EP Interpretation: reviewed, normal General Appearance: no apparent distress, alert, GCS 15, non-toxic Head: normocephalic, atraumatic Eyes: bilateral eye normal inspection, bilateral eye PERRL ENT: hearing grossly normal, normal pharynx, no angioedema, normal voice Neck: full range of motion, supple/symm/no masses Respiratory: chest non-tender, lungs clear, normal breath sounds, speaking full sentences Cardiovascular #1: regular rate, rhythm, no edema Cardiovascular #2: 2+ carotid (R), 2+ carotid (L), 2+ radial (R), 2+ radial (L), 2+ dorsalis pedis (R), 2+ dorsalis pedis (L) Gastrointestinal: normal bowel sounds, non tender, soft, non-distended, no guarding, no rebound Rectal: deferred Genitourinary: normal inspection, no CVA tenderness Musculoskeletal: back normal, normal range of motion, gait/station normal, non- tender Neurologic: alert, motor strength/tone normal, oriented x3, sensory intact, responsive, speech normal Psychiatric: judgement/insight normal, memory normal, no suicidal/homicidal ideation, anxious Reflexes: 3+ bicep (R), 3+ bicep (L), 3+ tricep (R), 3+ tricep (L), 3+ knee (R), 3+ knee (L) Lymphatic: no adenopathy Medical Decision Making Diagnostic Impression: Primary Impression: Palpitations Additional Impression: Anxiety attack ER Course Hospital Course 55-year-old F presents ED complaining of palpitations Differential diagnoses include: afib, Vtach, SVT, anxiety, dehydration Clinical course Patient placed on stretcher. After initial history and physical I ordered labs, EKG, chest x-ray, ativan. labs reviewed- all electrolytes normal, troponins negative, no leukocytosis, hemoglobin/hematocrit stable EKG - NSR, no acute ischemic changes interpreted by me Chest x-ray- R sided infiltrates noted On reassessment symptoms improved. Feels better after Ativan. discussed findings with patient. No cough. No fever. Vitals stable. No hypoxia or tachypnea. Covid versus pneumonia. Covid swab sent. Will discharge with antibiotics and Ativan. Safe for discharge with close outpatient follow-up. I will provide referrals I. I feel this is a highly complex case requiring extensive working including EKG/Rhythm strip, Xray/CT/US, Blood/urine lab work, repeat exams while in ED, and administration of strong opiates/narcotics for pain control, admission to hospital or close patient follow up. Diagnosis - palpitations, anxiety attack Stable and discharged to home. Instructed to followup with PMD. Return to ED if symptoms recur or worsen Laboratory Tests Test 03/06/20 16:15 White Blood Count 7.0 K/UL (4.8-10.8) Red Blood Count 4.37 M/UL (4.20-5.40) Hemoglobin 13.6 G/DL (12.0-16.0) Hematocrit 40.2 % (37.0-47.0) Mean Corpuscular Volume 92 FL (80-99) Mean Corpuscular Hemoglobin 31.2 PG (27.0-31.0) H Mean Corpuscular Hemoglobin Concent 33.9 G/DL (32.0-36.0) Red Cell Distribution Width 13.3 % (11.6-14.8) Platelet Count 257 K/UL (150-450) Mean Platelet Volume 6.7 FL (6.5-10.1) Neutrophils (%) (Auto) 64.0 % (45.0-75.0) Lymphocytes (%) (Auto) 25.2 % (20.0-45.0) Monocytes (%) (Auto) 7.1 % (1.0-10.0) Eosinophils (%) (Auto) 2.1 % (0.0-3.0) Basophils (%) (Auto) 1.6 % (0.0-2.0) Sodium Level 139 MMOL/L (136-145) Potassium Level 3.9 MMOL/L (3.5-5.1) Chloride Level 104 MMOL/L (98-107) Carbon Dioxide Level 27 MMOL/L (21-32) Anion Gap 8 mmol/L (5-15) Blood Urea Nitrogen 11 mg/dL (7-18) Creatinine 0.6 MG/DL (0.55-1.30) Estimat Glomerular Filtration Rate > 60 mL/min (>60) Glucose Level 78 MG/DL (74-106) Calcium Level 8.6 MG/DL (8.5-10.1) Total Bilirubin 0.4 MG/DL (0.2-1.0) Aspartate Amino Transf (AST/SGOT) 25 U/L (15-37) Alanine Aminotransferase (ALT/SGPT) 23 U/L (12-78) Alkaline Phosphatase 78 U/L (46-116) Troponin I 0.000 ng/mL (0.000-0.056) Total Protein 7.0 G/DL (6.4-8.2) Albumin 3.7 G/DL (3.4-5.0) Globulin 3.3 g/dL Albumin/Globulin Ratio 1.1 (1.0-2.7) EKG Diagnostic Results Troponin ordered: Yes Rate: normal Rhythm: NSR ST Segments: no acute changes ASA given to the pt in ED: No Rhythm Strip Diag. Results EP Interpretation: yes Rhythm: NSR, no PVC's, no ectopy Chest X-Ray Diagnostic Results Chest X-Ray Diagnostic Results : Chest X-Ray Ordered: Yes # of Views/Limited/Complete: 1 View Indication: Other EP Interpretation: Yes Interpretation: no effusion, no pneumothorax, other - R sided opacity Impression: Other - R sided infiltrate Electronically Signed by: Electronically signed by Saad Davis MD Last Vital Signs Date Time Temp Pulse Resp B/P (MAP) Pulse Ox O2 Delivery O2 Flow Rate FiO2 03/06/20 17:54 98.5 84 17 108/72 98 Room Air Status: improved Disposition: HOME, SELF-CARE Condition: Stable Scripts Lorazepam* (ATIVAN*) 1 Mg Tablet 1 MG ORAL THREE TIMES A DAY for anxiety, #10 TAB Prov: Saad Davis MD 03/06/20 Azithromycin* (ZITHROMAX*) 250 Mg Tablet 250 MG ORAL DAILY, #6 TAB 0 Refills Take two tables once daily for 1 day, then one tablet once daily for 4 days. Prov: Saad Davis MD 03/06/20 Referrals: Shailesh Myers [facility] Patient Instructions: Panic Attacks Additional Instructions: we sent a COVID test. it will take 48 hours to get a result. we will contact you if positive. Saad Davis MD Mar 06, 2020 19:31
== END 2020-03-06 17:54 | disposition home or self-care (01) ==
LOC: EMR 17:06
DX: F41.9 Anxiety disorder, unspecified (principal); Z79.899 Other long term (current) drug therapy; Z88.0 Allergy status to penicillin; I10 Essential (primary) hypertension; G40.909 Epilepsy, unspecified, not intractable, without status epilepticus
CPT/HCPCS: 36415; 71045; 80053; 84484; 85025; 93005; 96374; 99284; U0004